=== PATIENT | female | born 1980 | race Caucasian/White ===

== ENCOUNTER → 2016-12-28 | Outpatient (CLI) | payer MEDICARE, OTHER ==
--- NOTE | 2016-12-28 13:58 | CT ---
EXAMINATION TYPE: CT brain w con DATE OF EXAM: 12/28/2016 COMPARISON: MRI brain December 28, 2013 HISTORY: Headache, acute CT DLP: 1103 mGycm Automated Exposure Control for Dose Reduction was Utilized. TECHNIQUE: CT scan of the head is performed with IV contrast.,CT scan of the head is performed withou t and with with IV Contrast, patient injected with 100 ml mL of Omnipaque 300. FINDINGS: Noncontrast images show no acute intracranial hemorrhage or midline shift. The ventricles and sulci are within normal limits in size. Postcontrast images show no suspicious enhancing intrapa renchymal mass. The globes are intact and the visualized sinuses are clear. IMPRESSION: Unremarkable study.
== END | disposition home or self-care (01) ==
LOC: RADCTMAIN 13:17
PROVIDERS: ATTEND Family Medicine
DX: R51 Headache (principal)
CPT/HCPCS: 70460; Q9967

== ENCOUNTER 2017-07-23 21:50 | Emergency (ER) | payer MEDICARE, OTHER ==
[2017-07-23 22:01] VITALS: RESP 18
--- NOTE | 2017-07-23 22:37 | ED ---
URI HPI - General Chief Complaint: Upper Respiratory Infection Stated Complaint: Cough Time Seen by Provider: 07/23/17 22:24 Source: patient Mode of arrival: ambulatory Limitations: no limitations - History of Present Illness Initial Comments: 36-year-old male patient presents to the emergency department today for evaluation of cough and congestion. Patient states that she did see her physician on and he gave her prescription for Biaxin, states she has been taking it but is not improving. She states that her symptoms started around . States that she has had nasal congestion, cough, and sore throat. She denies any fevers with this. She states that today she is having some chest pain and shortness of breath with coughing. She states she has sick contacts at home. Patient denies any recent rash, abdominal pain, nausea, vomiting, diarrhea, constipation, back pain, numbness, tingling, dizziness, weakness, hematuria, dysuria, urinary urgency, urinary frequency, headache, visual changes, or any other complaints. - Related Data Home Medications Medication Instructions Recorded Confirmed Levothyroxine Sodium [Synthroid] 50 mcg PO DAILY 03/21/14 04/12/14 Non-Formulary Drug [Non Formulary 1 each PO ONCE 04/03/14 04/03/14 Drug] Previous Rx's Medication Instructions Recorded Promethaz-Cod 6.25-10 mg/5 ml 5 ml PO Q6HR PRN #100 ml 07/23/17 [Phenergan with Codeine] predniSONE 50 mg PO DAILY #5 tablet 07/23/17 Allergies Allergy/AdvReac Type Severity Reaction Status Date / Time No Known Allergies Allergy Verified 07/23/17 22:01 Review of Systems ROS Statement: Those systems with pertinent positive or pertinent negative responses have been documented in the HPI. ROS Other: All systems not noted in ROS Statement are negative. Past Medical History Past Medical History: GERD/Reflux, Thyroid Disorder History of Any Multi-Drug Resistant Organisms: None Reported Past Surgical History: Section Additional Past Surgical History / Comment(s): partial right thyroidectomy, epiglottis flap surgery 2013 Past Psychological History: No Psychological Hx Reported Smoking Status: Current every day smoker Past Alcohol Use History: None Reported Past Drug Use History: None Reported - Past Family History Mother Family Medical History: Cancer General Exam Limitations: no limitations General appearance: alert, in no apparent distress, other (Social well-developed , well-nourished adult female patient in no acute distress. Vital signs upon presentation are temperature 99.1F oral, pulse 122, respirations 18, blood pressure 137/90, pulse ox 98% on room air.) Eye exam: Present: normal appearance, PERRL, EOMI. Absent: scleral icterus, conjunctival injection, periorbital swelling ENT exam: Present: normal exam, mucous membranes moist, TM's normal bilaterally , other (No evidence of tonsillar hypertrophy or tonsillar exudate.). Absent: normal oropharynx (Oropharyngeal erythema) Neck exam: Present: normal inspection. Absent: tenderness, meningismus, lymphadenopathy Respiratory exam: Present: normal lung sounds bilaterally, other (Respirations are even and unlabored). Absent: respiratory distress, wheezes, rales, rhonchi , stridor Cardiovascular Exam: Present: regular rate, normal rhythm, normal heart sounds. Absent: systolic murmur, diastolic murmur, rubs, gallop, clicks GI/Abdominal exam: Present: soft, normal bowel sounds. Absent: distended, tenderness, guarding, rebound, rigid Neurological exam: Present: alert, oriented X3, CN II-XII intact Psychiatric exam: Present: normal affect, normal mood Skin exam: Present: warm, dry, intact, normal color. Absent: rash Course Vital Signs 07/23/17 07/23/17 21:59 23:00 Temperature 98.6 F 98.9 F Pulse Rate 122 H 104 H Respiratory 18 18 Rate Blood Pressure 137/90 133/75 O2 Sat by Pulse 98 96 Oximetry Medical Decision Making - Medical Decision Making 36-year-old female patient presented to the emergency department today for evaluation of cough, congestion, and shortness of breath. Physical examination revealed clear lung sounds, erythematous oropharynx, and even nonlabored respirations. EKG was obtained and showed sinus tachycardia with a fascicular block. Chest x-ray was obtained and showed no acute cardiopulmonary process however did show a hiatal hernia. Influenza testing was negative. I did discuss results with patient, informed her of the hiatal hernia. I informed her that her symptoms are most likely viral in nature. I told her that the Bisaad could take a few more days to kick in if she doesn't act have a sinus infection as diagnosed by her primary care physician. I instructed her to increase her fluids. I did inform her that she most likely has developed a bronchitis. She'll be given IM steroids here in the department. She'll be given a home prescription for Phenergan with codeine and prednisone. She is instructed to follow-up with her primary care physician for recheck in 1-2 days. She is instructed to return here immediately for any new, worsening, or concerning symptoms. She verbalizes understanding and agrees with this plan. - Lab Data Lab Results 07/23/17 Range/Units 22:56 Influenza Type A RNA Not Detected (Not Detectd) Influenza Type B (PCR) Not Detected (Not Detectd) - EKG Data EKG Comments: EKG obtained at 2257 shows normal sinus rhythm with a left posterior fascicular block. Ventricular rate is 100, AR interval 132, QRS duration 68, QT 330, QTC 425. No evidence of ST elevation or depression. - Radiology Data Radiology results: report reviewed, image reviewed Two-view x-ray of the chest shows a heart and mediastinum are normal. Lungs are clear. There is a hiatal hernia. Diaphragm is normal. Bony thorax is intact. Impression by Dr. Regalado shows hiatal hernia with no active cardiopulmonary disease. Disposition Clinical Impression: Acute bronchitis, Viral upper respiratory illness Disposition: HOME SELF-CARE Condition: Good Instructions: Upper Respiratory Infection (ED), Acute Bronchitis (ED) Additional Instructions: Rest, increase fluids. Complete her antibiotic prescription and full. Complete steroid prescription and full. Take cough medication as directed. Follow-up with her primary care physician for recheck in 1-2 days. Return here immediately for any new, worsening, or concerning symptoms. Prescriptions: predniSONE 50 mg PO DAILY #5 tablet Promethaz-Cod 6.25-10 mg/5 ml [Phenergan with Codeine] 5 ml PO Q6HR PRN #100 ml PRN Reason: Cough Referrals: Jimmy Redding MD [Primary Care Provider] - 1-2 days Time of Disposition: 23:39
--- NOTE | 2017-07-23 23:00 | XR ---
EXAMINATION TYPE: XR chest 2V DATE OF EXAM: 07/23/2017 COMPARISON: NONE HISTORY: Chest pain TECHNIQUE: Frontal and lateral views of the chest are obtained. FINDINGS: Heart and mediastinum are normal. Lungs are clear. There is a hiatal hernia. Diaphragm is normal. Bony thorax is intact. IMPRESSION: Hiatal hernia. No active cardiopulmonary disease.
[2017-07-23 23:01] VITALS: BP 133/75; PULSE 104; TEMP 98.9
[2017-07-23] MEDS ORDERED: methylPREDNISolone SOD SUCCI 125 MG/2 ML VIAL IM ONE (23:36)
== END 2017-07-23 23:49 | disposition home or self-care (01) ==
LOC: EC 21:50
DX: J20.9 Acute bronchitis, unspecified (principal); J06.9 Acute upper respiratory infection, unspecified; K44.9 Diaphragmatic hernia without obstruction or gangrene; I44.5 Left posterior fascicular block; R00.0 Tachycardia, unspecified; E07.9 Disorder of thyroid, unspecified; F17.200 Nicotine dependence, unspecified, uncomplicated; Z79.899 Other long term (current) drug therapy; Z98.890 Other specified postprocedural states
CPT/HCPCS: 93005; 87502; 71020; 99284; 96372; J2930

== ENCOUNTER 2017-10-12 08:14 | Day surgery (SDC) | payer MEDICARE, OTHER ==
[2017-10-07 16:18] VITALS: BMI 39.3
[~2017-10-12 08:14] MED LIST: LACTATED RINGERS 1,000 ML IV SCH
[2017-10-12 08:40] VITALS: RESP 16; TEMP 97.6
[2017-10-12] MEDS ORDERED: LIDOCAINE 1% 20 ML VIAL (10MG/ML) FOR IV START INTRADERMA ONE (08:51)
--- NOTE | 2017-10-12 10:12 | P.GSHP ---
History of Present Illness H&P Date: 10/12/17 Chief Complaint: GERD This is a 36-year-old female who presents today for EGD. She's had issues with GERD. Past Medical History Past Medical History: Cancer, GERD/Reflux, Hypertension, Thyroid Disorder Additional Past Medical History / Comment(s): THYROID CA. History of Any Multi-Drug Resistant Organisms: None Reported Past Surgical History: Section, Joint Replacement Additional Past Surgical History / Comment(s): Partial LT Thyroidectomy. LT TOTAL KNEE. Epiglottis flap surgery 2013 (FOR GERD). Past Anesthesia/Blood Transfusion Reactions: No Reported Reaction Smoking Status: Current every day smoker - Past Family History Mother Family Medical History: Cancer Medications and Allergies Home Medications Medication Instructions Recorded Confirmed Type Levothyroxine Sodium [Synthroid] 125 mcg PO DAILY 03/21/14 10/07/17 History Acetaminophen [Tylenol Extra 500 mg PO Q6H PRN 10/07/17 10/07/17 History Strength] Escitalopram [Lexapro] 10 mg PO HS 10/07/17 10/07/17 History Lessina-28 1 tab PO HS 10/07/17 History Losartan [Cozaar] 50 mg PO DAILY 10/07/17 10/07/17 History Allergies Allergy/AdvReac Type Severity Reaction Status Date / Time No Known Allergies Allergy Verified 10/12/17 08:29 Surgical - Exam Vital Signs Temp Pulse Resp BP Pulse Ox 97.6 F 98 16 138/85 96 10/12/17 08:39 10/12/17 08:39 10/12/17 08:39 10/12/17 08:39 10/12/17 08:39 - General well developed, no distress - Eyes PERRL - ENT normal pinna, no hearing loss - Neck no masses - Respiratory normal expansion - Cardiovascular Rhythm: regular - Abdomen Abdomen: soft, non tender Assessment and Plan Assessment: GERD. We'll perform EGD.
[2017-10-12] MEDS ORDERED: LIDOCAINE 1% INJ 10MG/ML (20 ML MDV) ONE (10:15)
[2017-10-12] MEDS ORDERED: PROPOFOL 10 MG/ML 20 ML VIAL IV ONE (10:15)
--- NOTE | 2017-10-12 10:31 | P.OP ---
Date of Procedure: 10/12/17 Preoperative Diagnosis: GERD Postoperative Diagnosis: Large paraesophageal hernia Procedure(s) Performed: egd Anesthesia: MAC Surgeon: Calvin Carson Pathology: other (Antrum, esophagus) Condition: stable Disposition: PACU Description of Procedure: The patient's placed on the endoscopy table lateral position. She received IV sedation. The gastroscope placed oropharynx and passed in the esophagus into the stomach. Scope was then placed through the pylorus. The first and second portion of the duodenum appeared normal. The scope was then brought back into the antrum this is mildly inflamed. A biopsies was performed. The scope was unretroflexed and remainder stomach appeared normal. There was a large paraesophageal hiatal hernia. The GE junction was at 38 cm. The distal esophagus was minimal inflamed and a biopsies performed. The proximal esophagus appeared normal. The scope was withdrawn for patient.
[2017-10-12 11:13] VITALS: BP 123/81; PULSE 79
== END 2017-10-12 11:29 | disposition home or self-care (01) ==
LOC: ORWHC2ENDO 08:14
PROVIDERS: ATTEND Surgery
DX: K21.0 Gastro-esophageal reflux disease with esophagitis (principal); K29.50 Unspecified chronic gastritis without bleeding; K44.9 Diaphragmatic hernia without obstruction or gangrene; I10 Essential (primary) hypertension; Z85.850 Personal history of malignant neoplasm of thyroid; E89.0 Postprocedural hypothyroidism; Z79.890 Hormone replacement therapy; Z79.899 Other long term (current) drug therapy; F17.210 Nicotine dependence, cigarettes, uncomplicated; F41.9 Anxiety disorder, unspecified; E66.01 Morbid (severe) obesity due to excess calories; Z68.39 Body mass index [BMI] 39.0-39.9, adult
CPT/HCPCS: 81025; 88305; 43239; J2001; J2704

== ENCOUNTER → 2017-10-31 | Outpatient (CLI) | payer MEDICARE, OTHER ==
[2017-10-31 11:03] LABS: Basophils % (A) 1 %; Eosinophils # (A) 0.2 k/uL (0-0.7); Eosinophils % (A) 2 %; HCT 42.3 % (34.0-46.0); Lymphocytes % (A) 39 %; MCH 30.3 pg (25.0-35.0); MCV 91.7 fL (80.0-100.0); Mean Platelet Volume 6.9; Monocytes # (A) 0.4 k/uL (0-1.0); Monocytes % (A) 5 %; Neutrophils % (A) 52 %; Platelet Count 295 k/uL (150-450); RBC 4.61 m/uL (3.80-5.40); RDW 12.6 % (11.5-15.5); WBC 7.7 k/uL (3.8-10.6)
== END | disposition home or self-care (01) ==
LOC: LABPAT 10:16
PROVIDERS: ATTEND Surgery
DX: Z01.818 Encounter for other preprocedural examination (principal); Z01.812 Encounter for preprocedural laboratory examination; K21.9 Gastro-esophageal reflux disease without esophagitis; D64.9 Anemia, unspecified; F17.200 Nicotine dependence, unspecified, uncomplicated
CPT/HCPCS: 36415; 85025; 93005

== ENCOUNTER 2017-11-11 10:55 | Day surgery (SDC) | payer MEDICARE, OTHER ==
[2017-11-02 15:21] VITALS: BMI 38.9
[~2017-11-11 10:55] MED LIST changes: +DEXAMETHASONE SOD PHOSPHATE 10 MG/ML 1 ML VIAL IV ONE; +HEPARIN SODIUM,PORCINE 5,000 UNIT/ML 1 ML VIAL SQ ONE; -LACTATED RINGERS 1,000 ML IV SCH; +MIDAZOLAM 2 MG/2 ML VIAL IV PRN; +ONDANSETRON 4 MG/2 ML VIAL IVP ONE; +SCOPOLAMINE 1.5MG/72HR PATCH TRANSDERM ONE; +ceFAZolin IN SWFI 2 GM/20 ML SYRINGE IVP ONE; +fentaNYL (PF) 50 MCG/ML 2 ML AMP IV PRN
[2017-11-11] MEDS ORDERED: LIDOCAINE 1% 20 ML VIAL (10MG/ML) FOR IV START INTRADERMA ONE (11:25)
[2017-11-11] MEDS: LACTATED RINGERS 1,000 ML IV SCH (11:27)
--- NOTE | 2017-11-11 12:51 | P.GSHP ---
History of Present Illness H&P Date: 11/11/17 Chief Complaint: GERD This is a 36-year-old female referred from Dr. Redding.The patient has had long- standing problems with reflux esophagitis. The patient underwent recent EGD is found have evidence of esophagitis. Patient has been well informed on the procedure of laparoscopic Maliha fundoplication. The patient is aware the risk of the conversion to the open procedure, risk of injury to the stomach, liver and spleen. The patient is also a risk of recurrent GERD and dysphagia symptoms. The patient understands there is a postoperative diet of full liquids for 2 weeks after surgery. Past Medical History Past Medical History: Cancer, GERD/Reflux, Hypertension, Thyroid Disorder Additional Past Medical History / Comment(s): THYROID cancer, migraines, hiatal hernia, History of Any Multi-Drug Resistant Organisms: None Reported Past Surgical History: Section, Joint Replacement Additional Past Surgical History / Comment(s): Partial left Thyroidectomy. Epiglottis flap surgery 2013 (FOR GERD), left knee replacement, C/S x 2, Past Anesthesia/Blood Transfusion Reactions: No Reported Reaction Smoking Status: Current every day smoker - Past Family History Mother Family Medical History: Cancer Medications and Allergies Home Medications Medication Instructions Recorded Confirmed Type Levothyroxine Sodium [Synthroid] 125 mcg PO DAILY 03/21/14 11/11/17 History Escitalopram [Lexapro] 10 mg PO HS 10/07/17 11/11/17 History Lessina-28 1 tab PO HS 10/07/17 11/11/17 History Losartan [Cozaar] 50 mg PO DAILY 10/07/17 11/11/17 History Tylenol/Codeine/Aspirin 1 tab PO DIRECTED PRN 11/02/17 11/11/17 History Allergies Allergy/AdvReac Type Severity Reaction Status Date / Time No Known Allergies Allergy Verified 11/02/17 15:12 Surgical - Exam Vital Signs Temp Pulse Resp BP Pulse Ox 97.2 F L 99 16 121/76 97 11/11/17 11:23 11/11/17 11:23 11/11/17 11:23 11/11/17 11:23 11/11/17 11:23 - General well developed, no distress - Eyes PERRL - ENT normal pinna - Neck no masses - Respiratory normal expansion - Cardiovascular Rhythm: regular - Abdomen Abdomen: soft, non tender Assessment and Plan Assessment: We'll perform laparoscopic Maliha fundal plication.
[2017-11-11 13:01] LABS: Prothrombin Time 10.1 sec (9.0-12.0)
[2017-11-11] MEDS ORDERED: fentaNYL (PF) 50 MCG/ML 2 ML AMP ONE (13:08)
[2017-11-11] MEDS ORDERED: KETOROLAC 30 MG/ML 1 ML VIAL ONE (13:08)
[2017-11-11] MEDS ORDERED: ROCURONIUM BROMIDE 10 MG/ML 10 ML VIAL IV ONE (13:08)
[2017-11-11] MEDS ORDERED: MIDAZOLAM 2 MG/2 ML VIAL ONE (13:08)
[2017-11-11] MEDS ORDERED: GLYCOPYRROLATE 0.2 MG/ML 2 ML VIAL ONE (13:08)
[2017-11-11] MEDS ORDERED: NEOSTIGMINE 1 MG/ML 10 ML VIAL ONE (13:08)
[2017-11-11] MEDS ORDERED: PROPOFOL 10 MG/ML 20 ML VIAL IV ONE (13:08)
[2017-11-11] MEDS ORDERED: DEXAMETHASONE SOD PHOS (MDV) 100 MG/10 ML VIAL ONE (13:08)
[2017-11-11] MEDS ORDERED: BUPIVACAINE (PF) 0.25% 30 ML VIAL SQ ONE (13:17)
[2017-11-11] MEDS ORDERED: MORPHINE SULFATE 4MG/4ML SYRG IVP PRN ×2 (14:15→14:18)
[2017-11-11] MEDS ORDERED: LACTATED RINGERS 1,000 ML IV ONE (14:15)
--- NOTE | 2017-11-11 14:20 | P.OP ---
Date of Procedure: 11/11/17 Preoperative Diagnosis: GERD Postoperative Diagnosis: Recurrent hiatal hernia Procedure(s) Performed: Laparoscopic Maliha fundoplication with mesh Anesthesia: JUVE Surgeon: Calvin Carson Estimated Blood Loss (ml): 10 Pathology: none sent Condition: stable Disposition: PACU Description of Procedure: MThe patient was placed on the operating table in the supine position. She received general anesthesia. She was then placed in dorsal lithotomy position. Her abdomen was prepped and draped in the usual sterile fashion. The skin incision sites were anesthetized with 1% local Xylocaine. The skin was incised in the left periumbilical area with an 11 scalpel. Using a 5 mm blade was trocar under direct visitation the peritoneal cavity was entered. And then insufflated. After adequate insufflation the laparoscope was placed back into the peritoneal cavity. Next a 5 mm trocar was placed in the right epigastric and then the right lateral position. Another 5 mm trochars placed in the left lateral position. Another 5 mm trocar placed in the left epigastric position. And the original left periumbilical trocar was exchanged for a 10 mm trocar. The left lateral lobe liver was retracted. The patient had a large hiatal hernia. Using the Harmonic scissors the crural defect was dissected in the Harmonic scissors were used to dissect the hiatal hernia sac. The fundus of the stomach was completely mobilized by using the Harmonic scissors to divide short gastric vessels. The stomach was reduced into the peritoneal cavity. The crura was dissected with the Harmonic scissors. And then the crural repair was performed using 2-0 Ethibond suture. The [place] bio A mesh was then placed over top of the repair and secured with 2-0 Ethibond suture. Next a 58-Bruneian bougie dilator was placed the patient's oral pharynx and into the esophagus into the stomach by the [employer]. The fundoplication was then performed using 2-0 Ethibond suture. A 360 fundoplication was performed. At this point the dilator was withdrawn. The stomach and esophagus were inspected there is known to any injury to the stomach or esophagus. The abdomen was irrigated there is no bleeding seen. The trochars are withdrawn. Skin was closed interrupted 3-0 Monocryl suture. Dermabond was applied. Patient tolerated procedure well and was sent to recovery in stable condition.
[2017-11-11] MEDS ORDERED: MORPHINE SULFATE 4 MG/ML SYRINGE IVP ONE (14:38)
[2017-11-11] MEDS: MORPHINE SULFATE 4 MG/ML SYRINGE IVP ONE ×2 (14:52→14:54)
[2017-11-11] MEDS: MEPERIDINE 50 MG/ML SYRINGE IVP ONE ×2 (15:08→15:09)
[2017-11-11] MEDS: NICOTINE 14MG/24HR PATCH TRANSDERM SCH (19:10)
[2017-11-11] MEDS: METOCLOPRAMIDE 5 MG/ML 2 ML VIAL IVP SCH ×2 (19:10→23:18)
[2017-11-11] MEDS: MORPHINE SULFATE 4 MG/0.8 ML SYRINGE (INJ) IVP PRN (19:10)
--- NOTE | 2017-11-11 19:22 | CONS ---
CONSULTATION I am covering for Dr. Redding. DATE OF SERVICE: 11/11/2017. REASON FOR CONSULTATION: Advice regarding hypertension, hypothyroidism and other multiple medical issues requested by Dr. Carson. HISTORY OF PRESENT ILLNESS: This 36-year-old woman with a past medical history of GERD, hypertension, hypothyroidism, history of migraines, hiatal hernia being followed by Dr. Redding in the outpatient setting underwent laparoscopic Maliha fundoplication with mesh by Dr. Carson for recurrent hiatal hernia. There was no history of any chest pain, palpitation, headache loss of consciousness. No history of any fever, rigors, chills at this time. PAST MEDICAL HISTORY: Hypertension, hypothyroidism, history of migraine, hiatal hernia, GERD. MEDICATIONS PRIOR TO ADMISSION: Include home medications are: 1. Tylenol with codeine 1 tablet p.r.n. 2. Cozaar 50 mg daily. 3. Synthroid 120 mcg p.o. daily. 4. 1 tablet p.o. q.h.s. 5. Lexapro 10 mg q.h.s. ALLERGIES: None. FAMILY HISTORY: History of cancer in the family. SOCIAL HISTORY: History of smoking. REVIEW OF SYSTEMS: ENT: No diminished hearing, diminished vision. CARDIOVASCULAR: No angina, palpitations. RESPIRATORY: As mentioned earlier. GI: As mentioned earlier. : No dysuria. NERVOUS: No numbness or weakness. ALLERGY/IMMUNOLOGY: No asthma or hay fever. MUSCULOSKELETAL: As mentioned earlier. HEMATOLOGY/ONCOLOGY: No history of anemia. ENDOCRINE: No history of diabetes, hypothyroidism. CONSTITUTIONAL: As mentioned earlier. DERMATOLOGY: Negative. RHEUMATOLOGY: Negative. PSYCHIATRY: As mentioned earlier. PHYSICAL EXAMINATION: Alert and oriented x3. Pulse is 83, blood pressure 131/66, respirations 16, temperature 97 degrees, pulse ox 97% on 6L. HEENT: Conjunctivae normal. Oral mucosa moist. NECK: No jugular venous distention. No carotid bruits. No lymph node enlargement. CARDIOVASCULAR: S1, S2 muffled. No S3, S4. RESPIRATORY: Breath sounds diminished in the bases. A few scattered rhonchi. No crackles. ABDOMEN: Soft, nontender, status post surgery. LEGS: No edema. No swelling. NERVOUS SYSTEM: Higher functions as mentioned earlier. Moves all 4 limbs. No focal motor or sensory deficits. LYMPHATIC: No lymphadenopathy in neck or axillae. SKIN: No ulcer, rash or bleeding. LABS: Previous preop labs are reviewed, within normal limits. TSH was 0.3; however, free T4 was normal. ASSESSMENT: 1. Status post laparoscopic Maliha fundoplication with mesh for recurrent hiatal hernia. 2. Gastroesophageal reflux disease. 3. Hypertension. 4. Hypothyroidism. 5. History of migraines. 6. History of degenerative joint disease. 7. History of anxiety. 8. History of nicotine dependence. RECOMMENDATIONS AND DISCUSSION: In this 36-year-old woman who presented with multiple medical issues, at this time I recommend resume the home medication when the patient is p.o. Otherwise, DVT prophylaxis, incentive spirometry. Will follow the patient closely. The patient will be asked to follow up with Dr. Redding closely after discharge. Thank you Dr. Carson. LARRYL / JONNIEN: [id number] / JORGE
[2017-11-11] MEDS: D5-0.45% NACL WITH KCL 20MEQ/L 1,000 ML IV SCH ×2 (20:14→23:18)
[2017-11-11] MEDS: FAMOTIDINE 20 MG/2 ML VIAL IV SCH (21:20)
[2017-11-11 23:34] VITALS: RESP 18
[2017-11-12] MEDS: LACTATED RINGERS 1,000 ML IV SCH (00:50)
[2017-11-12] MEDS: MORPHINE SULFATE 4 MG/0.8 ML SYRINGE (INJ) IVP PRN ×2 (02:45→08:50)
[2017-11-12] MEDS: METOCLOPRAMIDE 5 MG/ML 2 ML VIAL IVP SCH (06:23)
[2017-11-12] MEDS: D5-0.45% NACL WITH KCL 20MEQ/L 1,000 ML IV SCH (06:24)
[2017-11-12] MEDS ORDERED: LEVOTHYROXINE 125 MCG TAB PO SCH (06:30)
[2017-11-12] MEDS: NICOTINE 14MG/24HR PATCH TRANSDERM SCH (08:49)
[2017-11-12] MEDS: FAMOTIDINE 20 MG/2 ML VIAL IV SCH (08:49)
[2017-11-12] MEDS ORDERED: ENOXAPARIN 40 MG/0.4 ML SYRINGE SQ SCH (09:00)
[2017-11-12] MEDS ORDERED: PANTOPRAZOLE 40 MG/10 ML VIAL IVP SCH (09:00)
[2017-11-12] MEDS ORDERED: LOSARTAN 50 MG TAB PO SCH (09:00)
[2017-11-12 09:17] VITALS: BP 134/70; PULSE 77; TEMP 98.1
--- NOTE | 2017-11-12 09:36 | FL ---
EXAMINATION TYPE: FL esophagus cervic/pharynx DATE OF EXAM ORDERED: 11/12/2017 9:16 AM HISTORY: Law fundoplication. COMPARISON: None. FINDINGS: The patient drank contrast with ease. There is prompt egress of contrast from the esophagu s into the stomach. There is no significant free air. There is no extravasation. The ligament of Trei tz is in normal location. IMPRESSION: STATUS POST LAW FUNDOPLICATION.
--- NOTE | 2017-11-12 11:48 | P.PN ---
Subjective Progress Note Date: 11/12/17 Patient is a 36-year-old white female status post laparoscopic Maliha fundoplication. The patient had a swallow performed today which does not show any concern for leak and prompt egress of contrast from the esophagus into the stomach. The patient is doing well at this time and wishes to be discharged home. Objective - Vital Signs Vital signs: Vital Signs Temp 98.1 F 11/12/17 08:11 Pulse 77 11/12/17 08:11 Resp 18 11/12/17 08:11 BP 134/70 11/12/17 08:11 Pulse Ox 97 11/12/17 08:11 Intake & Output 11/11/17 11/12/17 11/12/17 18:59 06:59 18:59 Intake Total 1600 1400 Output Total 10 Balance 1590 1400 Weight 102.965 kg Intake: IV 1600 Oral 1400 Output: Estimated Blood Loss 10 Other: # Voids 1 - Constitutional General appearance: Present: obese - Respiratory Respiratory: bilateral: CTA - Cardiovascular Rhythm: regular Heart sounds: normal: S1, S2 - Gastrointestinal Gastrointestinal Comment(s): Incisions clean and dry General gastrointestinal: Present: normal bowel sounds, soft - Psychiatric Psychiatric: Present: A&O x's 3, appropriate affect, intact judgment & insight Assessment and Plan Assessment: Impression/plan: 1. Patient doing well postop Plan: 1. Discharge patient home to be followed as an outpatient by Dr. Quintanilla
--- NOTE | 2017-11-12 11:49 | P.DS ---
Providers Attending physician: Calvin Carson Consults: 11/11/17 14:15 Consult Physician Routine Consulting Provider: Jimmy Redding Consult Reason/Comments: Medical management Do you want consulting provider notified?: Yes Primary care physician: Jimmy Redding Plan - Discharge Summary Discharge Rx Participant: No New Discharge Prescriptions: New Docusate [Colace] 100 mg PO BID #20 capsule HYDROcodone/APAP 7.5-325MG [Dike 7.5] 1 each PO Q4H PRN #30 tab PRN Reason: Pain No Action Levothyroxine Sodium [Synthroid] 125 mcg PO DAILY Losartan [Cozaar] 50 mg PO DAILY Escitalopram [Lexapro] 10 mg PO HS Lessina-28 1 tab PO HS Tylenol/Codeine/Aspirin 1 tab PO DIRECTED PRN PRN Reason: migraines Discharge Medication List Levothyroxine Sodium [Synthroid] 125 mcg PO DAILY 03/21/14 [History] Escitalopram [Lexapro] 10 mg PO HS 10/07/17 [History] Lessina-28 1 tab PO HS 10/07/17 [History] Losartan [Cozaar] 50 mg PO DAILY 10/07/17 [History] Tylenol/Codeine/Aspirin 1 tab PO DIRECTED PRN 11/02/17 [History] Docusate [Colace] 100 mg PO BID #20 capsule 11/11/17 [Rx] HYDROcodone/APAP 7.5-325MG [Dike 7.5] 1 each PO Q4H PRN #30 tab 11/11/17 [Rx] Follow up Appointment(s)/Referral(s): Calvin Carson MD [STAFF PHYSICIAN] - 2 Weeks Patient Instructions/Handouts: *Surgery [facility] - ([facility]) Lap Maliha Fundiplication Post-Op Instructions, Full Liquid Diet (DC) Activity/Diet/Wound Care/Special Instructions: Follow the full liquid diet plan. If unable to swallow or difficulty swallowing, come to ER. If any fever, increased pain, or other concerns call your surgeon. Make follow-up appointments on Tuesday. See Dr. Carson in 2 weeks. Discharge Disposition: HOME SELF-CARE
--- NOTE | 2017-11-12 14:39 | PN ---
PROGRESS NOTE I am covering for Dr. Redding. DATE OF SERVICE: 11/12/2017 This 36-year-old woman who was admitted after Maliha fundoplication is being closely monitored. The patient is improving significantly. No chest pain. No palpitations. No fever. On exam, alert and oriented x3. Pulse 77, blood pressure 130/70, respiration 18, temperature 98.1, pulse ox 97% on room air. HEENT: Conjunctivae normal. NECK: No jugular venous distention. CARDIOVASCULAR SYSTEM: S1, S2 muffled. RESPIRATORY SYSTEM: Breath sounds diminished at the bases. No rhonchi. No crackles. ABDOMEN: Soft. Status post surgery. LEGS: No edema. No swelling. NERVOUS SYSTEM: No focal deficit. LABS: INR 1. ASSESSMENT: 1. Status post laparoscopic Maliha fundoplication with mesh for recurrent hiatal hernia. 2. Gastroesophageal reflux disease. 3. Hypertension. 4. Hypothyroidism. 5. History of migraine. 6. History of degenerative joint disease. 7. History of anxiety. 8. History of nicotine dependence. RECOMMENDATIONS AND DISCUSSION: I recommend to continue current medication, continue symptomatic treatment. Resume the home medication. Incentive spirometry. Closely follow with Dr. Redding. The rest of the recommendations per Surgery. Further recommendations to follow. . MMODL / IJN: [id number] /
[2017-11-12] MEDS ORDERED: ESCITALOPRAM 10 MG TAB PO SCH (21:00)
== END 2017-11-12 11:47 | disposition home or self-care (01) ==
LOC: OR 10:55 → 6PED 14:24 → OR 11-12 11:47
PROVIDERS: ATTEND Surgery
DX: K44.9 Diaphragmatic hernia without obstruction or gangrene (principal); K21.0 Gastro-esophageal reflux disease with esophagitis; I10 Essential (primary) hypertension; E89.0 Postprocedural hypothyroidism; Z85.850 Personal history of malignant neoplasm of thyroid; G43.909 Migraine, unspecified, not intractable, without status migrainosus; M19.90 Unspecified osteoarthritis, unspecified site; F41.9 Anxiety disorder, unspecified; F17.210 Nicotine dependence, cigarettes, uncomplicated; Z79.890 Hormone replacement therapy; Z79.899 Other long term (current) drug therapy; Z91.040 Latex allergy status; Z96.652 Presence of left artificial knee joint
CPT/HCPCS: 81025; 85610; 74210; 43280; C1781; S4990 ×2; J2270 ×3; J1644; J1100; J2765 ×2; J2175; J2405; J1650; C9113; J0690; Q9967

== ENCOUNTER → 2018-03-02 | Outpatient (CLI) | payer MEDICARE, OTHER ==
--- NOTE | 2018-03-02 09:00 | FL ---
EXAMINATION TYPE: FL barium swallow DATE OF EXAM: 03/02/2018 CLINICAL HISTORY: Recurrent epigastric pain improving with medication, history of prior surgeries for hernia repair. Was unaware patient had José fundoplication surgery October 2017, suspected ventral w all hernia repair after discussing with patient TECHNIQUE: A double contrast esophagram is performed utilizing air and barium was performed as well as unaware of prior José fundoplication surgery. A total of 32 seconds of fluoroscopic time was ut ilized during procedure. 22 spot images are saved during procedure. COMPARISON: Prior esophagram November 12, 2017 FINDINGS: The esophagus shows satisfactory motility and emptying into the stomach. No suspicious intr aluminal mass or stricture. There is recurrent small to moderate-sized sliding-type hiatal hernia whi ch is more prominent during drinking in the prone position. On review of upright drinking there is moreira ggestion of a retrocardiac opacity does not fill with contrast could reflect additional fixed small p araesophageal hernia but this is not clearly identified on supine imaging. No significant gastroesoph ageal reflux was seen during real time performance of this study. IMPRESSION: At least recurrent small to moderate-sized hiatal hernia favored sliding type and nonfixe d.
== END | disposition home or self-care (01) ==
LOC: RADFLWHC 08:01
PROVIDERS: ATTEND Surgery
DX: K44.9 Diaphragmatic hernia without obstruction or gangrene (principal); K21.9 Gastro-esophageal reflux disease without esophagitis
CPT/HCPCS: 74220

== ENCOUNTER → 2018-06-26 | Outpatient (CLI) | payer MEDICARE, OTHER ==
--- NOTE | 2018-06-26 13:20 | US ---
EXAMINATION TYPE: Transabdominal pelvic ultrasound DATE OF EXAM: 10/25/17 COMPARISON: NONE CLINICAL HISTORY: O00.9 Ectopic . EXAM MEASUREMENTS: GESTATIONAL AGE / DATING Physician Established: Not yet established Dates by LMP: (7 weeks/5 days) EDC: 02/07/18 Dates by First Scan: No previous this is first scan Dates by Current Scan for: (7 weeks/1 days) EDC: 02/11/18 MATERNAL ANATOMY Uterus:10.1 x 6.1 x 7.0cm Right Ovary: 3.1 x 1.5 x 1.5cm Left Ovary: 2.3 x 1.9 x 1.9cm Post CDS / Adnexa: wnl Presence of free fluid: no GESTATION / SURVEY CRL: 1.0 (7 weeks/1 days) Yolk Sac (normal less than 6mm): 4mm Heart Rate: 159 bpm Rhythm: Normal IUP: Live IUP Date of LMP: 05/03/18 Beta HcG (if available): Not available at this time IMPRESSION: Single live intrauterine with a calculated sonographic age of 7 weeks and 1 days and estima stanislav date of delivery of 02/10/2018, concordant with menstrual age.
== END ==
LOC: RADUSWWP 12:31
PROVIDERS: ATTEND Family Medicine
DX: O00.90 Unspecified ectopic pregnancy without intrauterine pregnancy (principal); Z3A.01 Less than 8 weeks gestation of pregnancy
CPT/HCPCS: 76801

== ENCOUNTER → 2018-11-30 | Outpatient (CLI) | payer MEDICARE, OTHER ==
[2018-11-30 13:12] LABS: Glucose 3 Hour, Gest 118 mg/dL
== END | disposition home or self-care (01) ==
LOC: LABWHC1 08:45
PROVIDERS: ATTEND Obstetrics & Gynecology
DX: O99.810 Abnormal glucose complicating pregnancy (principal); Z3A.00 Weeks of gestation of pregnancy not specified
CPT/HCPCS: 36415; 82951; 82952

== ENCOUNTER 2019-01-04 22:10 | Outpatient (CLI) | payer MEDICARE, OTHER ==
[2019-01-04 23:03] VITALS: BP 119/70; PULSE 96; RESP 15; TEMP 97.9
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
== END 2019-01-04 22:55 | disposition home or self-care (01) ==
LOC: FBPOP 22:10
PROVIDERS: ATTEND Obstetrics & Gynecology
DX: O26.93 Pregnancy related conditions, unspecified, third trimester (principal); Z3A.35 35 weeks gestation of pregnancy
CPT/HCPCS: 59025; G0463; 99213

== ENCOUNTER 2019-04-17 05:55 | Day surgery (SDC) | payer MEDICARE, OTHER ==
[2019-04-13 14:12] VITALS: BMI 35.6
[~2019-04-17 05:55] MED LIST changes: +LACTATED RINGERS 1,000 ML IV SCH; +LIDOCAINE 1% 20 ML VIAL (10MG/ML) FOR IV START INTRADERMA PRN; -MIDAZOLAM 2 MG/2 ML VIAL IV PRN; -ONDANSETRON 4 MG/2 ML VIAL IVP ONE; -ceFAZolin IN SWFI 2 GM/20 ML SYRINGE IVP ONE; -fentaNYL (PF) 50 MCG/ML 2 ML AMP IV PRN
[2019-04-17] MEDS: ONDANSETRON 4 MG/2 ML VIAL IVP ONE ×2 (06:46→09:22)
[2019-04-17 06:48] LABS: Basophils # (A) 0.1 k/uL (0-0.2); Basophils % (A) 1 %; Eosinophils # (A) 0.2 k/uL (0-0.7); Eosinophils % (A) 2 %; HCT 40.5 % (34.0-46.0); HGB 13.5 gm/dL (11.4-16.0); Lymphocytes # (A) 2.9 k/uL (1.0-4.8); Lymphocytes % (A) 34 %; MCH 30.3 pg (25.0-35.0); MCHC 33.2 g/dL (31.0-37.0); MCV 91.1 fL (80.0-100.0); Mean Platelet Volume 6.5; Monocytes # (A) 0.5 k/uL (0-1.0); Monocytes % (A) 6 %; Neutrophils # (A) 4.8 k/uL (1.3-7.7); Neutrophils % (A) 56 %; Platelet Count 273 k/uL (150-450); RBC 4.45 m/uL (3.80-5.40); RDW 13.2 % (11.5-15.5); WBC 8.6 k/uL (3.8-10.6)
[2019-04-17] MEDS ORDERED: fentaNYL (PF) 50 MCG/ML 2 ML AMP IV ONE (07:10)
[2019-04-17] MEDS ORDERED: MIDAZOLAM (PF) 2 MG/2 ML VIAL IV ONE (07:10)
--- NOTE | 2019-04-17 07:43 | P.ANPRN ---
Procedure Note - Anesthesia - Nerve Block Performed Bilateral Rectus Abdominis Single Time Out Performed: Yes Date of Procedure: 04/17/19 Procedure Start Time: Procedure Stop Time: Location of Patient Procedure: PreOp Indication: Acute Post-Operative Pain, Requested by Surgeon Sedation Type: Sedate with meaningful contact maintained Preparation: Sterile Prep Position: Supine Catheter: None Needle Types: Pajunk Needle Gauge: 18 Ultrasound used to visualize needle placement: Yes Ultrasound used to observe medication spread: Yes Injectate: 0.5% Ropivacaine (see comment for volume) (15cc + decadron 2mg- per side) Blood Aspirated: No Pain Paresthesia on Injection Noted: No Resistance on Injection: Normal Image Stored and Saved: Yes Events: Uneventful and Well Tolerated
[2019-04-17] MEDS ORDERED: PROPOFOL 10 MG/ML 20 ML VIAL IV ONE (07:56)
[2019-04-17] MEDS ORDERED: MIDAZOLAM 2 MG/2 ML VIAL ONE (07:56)
[2019-04-17] MEDS ORDERED: DEXAMETHASONE SOD PHOSPHATE 4 MG/ML 1 ML VIAL ONE (07:56)
[2019-04-17] MEDS ORDERED: ROPIVACAINE 5 MG/ML 30 ML VIAL ONE (07:56)
[2019-04-17] MEDS ORDERED: ROCURONIUM BROMIDE 10 MG/ML 10 ML VIAL IV ONE (07:56)
[2019-04-17] MEDS ORDERED: GLYCOPYRROLATE 0.2 MG/ML 2 ML VIAL ONE (07:56)
[2019-04-17] MEDS ORDERED: fentaNYL (PF) 50 MCG/ML 2 ML AMP ONE (07:56)
[2019-04-17] MEDS ORDERED: NEOSTIGMINE 1 MG/ML 10 ML VIAL ONE (07:56)
[2019-04-17] MEDS ORDERED: LIDOCAINE 1% INJ 10MG/ML (20 ML MDV) ONE (07:56)
--- NOTE | 2019-04-17 08:03 | P.GSHP ---
History of Present Illness H&P Date: 04/17/19 Chief Complaint: Umbilical hernia This a 38-year-old female who presents today for laparoscopic Ross repair of umbilical hernia. Patient developed a tender mass at her umbilicus. Past Medical History Past Medical History: Cancer, GERD/Reflux, Thyroid Disorder Additional Past Medical History / Comment(s): THYROID cancer, History of Any Multi-Drug Resistant Organisms: None Reported Past Surgical History: Section, Hernia Repair, Joint Replacement Additional Past Surgical History / Comment(s): left lobe of thyroid removed, part of rt lobe of thyroid removed. LT TOTAL KNEE. Epiglottis flap surgery 2013 (FOR GERD). Past Anesthesia/Blood Transfusion Reactions: No Reported Reaction Smoking Status: Current every day smoker - Past Family History Mother Family Medical History: Cancer Medications and Allergies Home Medications Medication Instructions Recorded Confirmed Type Levothyroxine Sodium [Synthroid] 125 mcg PO DAILY 03/21/14 04/17/19 History Pnv No.95/Ferrous Fum/Folic AC 1 each PO DAILY 01/04/19 04/17/19 History [ Multivitamin Tablet] Ibuprofen [Motrin] 800 mg PO TID PRN 04/13/19 04/17/19 History Pantoprazole Sodium [Protonix] 40 mg PO QAM 04/13/19 04/17/19 History Allergies Allergy/AdvReac Type Severity Reaction Status Date / Time latex Allergy Anaphylaxis Verified 04/13/19 14:04 Surgical - Exam Vital Signs Temp Pulse Resp Pulse Ox 98.5 F 89 16 97 04/17/19 06:13 04/17/19 06:13 04/17/19 06:13 04/17/19 06:13 - General well developed, well nourished, no distress - Eyes PERRL - ENT normal pinna - Neck no masses - Respiratory normal expansion - Cardiovascular Rhythm: regular - Abdomen Abdomen: soft, non tender Results - Labs 04/17/19 06:28 Assessment and Plan Assessment: Umbilical hernia. We'll perform laparoscopic robotic-assisted repair.
[2019-04-17] MEDS ORDERED: BUPIVACAINE (PF) 0.5% 30 ML VIAL SQ ONE (08:23)
[2019-04-17] MEDS ORDERED: LACTATED RINGERS 1,000 ML IV ONE ×3 (08:33→11:02)
[2019-04-17 09:17] VITALS: TEMP 97
[2019-04-17] MEDS: HYDROmorphone 0.5 MG/0.5 ML SYRINGE IVP PRN ×2 (09:25→09:44)
[2019-04-17] MEDS ORDERED: HYDROcodone/APAP 7.5-325MG 1 EACH TAB PO ONE (10:11)
[2019-04-17] MEDS ORDERED: DEXAMETHASONE SOD PHOS (MDV) 100 MG/10 ML VIAL IVP ONE (10:15)
[2019-04-17 10:31] VITALS: RESP 18
--- NOTE | 2019-04-17 10:33 | P.OP ---
Date of Procedure: 04/17/19 Preoperative Diagnosis: Umbilical hernia Postoperative Diagnosis: Umbilical hernia Procedure(s) Performed: Laparoscopic robotic system repair of umbilical hernia Anesthesia: JUVE Surgeon: Calvin Carson Estimated Blood Loss (ml): 5 Pathology: none sent Condition: stable Disposition: PACU Description of Procedure: The patient was placed on the operating table in the supine position. He received general anesthesia. His abdomen was prepped and draped usual fashion. Using a 5 mm optical trocar under direct visualization the peritoneal cavity was entered in the left upper quadrant. The abdomen was then insufflated. The laparoscope was placed back into the perineal cavity. Next a 8 mm robotic trocar was placed in the left lower quadrant and a 12 mm robotic trocar was placed in the left lateral position. The original 5 mm trocar was exchanged for a 8 mm robotic trocar. The patient's placed in the left side up position. And the patient was undocked the robot. The umbilical hernia was visualized. Using hook cautery the peritoneum over the umbilical hernia was excised. The fascial opening was repaired using 0V LOC suture. Next a piece of 11 cm round ventral light ST mesh was placed into the. Cavity and secured with 2 OV lock suture. The patient was undocked the robot. The needles were retrieved. The fascia of the 12 mm trocar site was closed with 0 Ethibond suture. Skin was closed interrupted 3-0 Monocryl suture. Dermabond dressings was applied. Patient top procedure well and was sent to recovery room stable condition.
[2019-04-17] MEDS ORDERED: HYDROmorphone 1 MG/ML 1 ML SYRINGE IVP ONE (11:00)
[2019-04-17] MEDS ORDERED: NALOXONE 0.4 MG/ML 1 ML VIAL IV PRN (11:02)
[2019-04-17] MEDS ORDERED: HYDROmorphone 0.5 MG/0.5 ML SYRINGE IVP PRN (11:02)
[2019-04-17] MEDS ORDERED: traMADol 50 MG TAB PO PRN (11:02)
[2019-04-17] MEDS ORDERED: HYDROcodone/APAP 5-325MG 1 EACH TAB PO PRN (11:02)
[2019-04-17] MEDS ORDERED: ONDANSETRON 4 MG/2 ML VIAL IVP PRN (11:02)
[2019-04-17] MEDS ORDERED: KETOROLAC 30 MG/ML 1 ML VIAL IVP SCH (11:15)
[2019-04-17 11:26] VITALS: BP 135/67; PULSE 67
[2019-04-18] MEDS ORDERED: ENOXAPARIN 40 MG/0.4 ML SYRINGE SQ SCH (09:00)
== END 2019-04-17 11:56 | disposition home or self-care (01) ==
LOC: OR 05:55
PROVIDERS: ATTEND Surgery
DX: K42.9 Umbilical hernia without obstruction or gangrene (principal); K21.9 Gastro-esophageal reflux disease without esophagitis; E89.0 Postprocedural hypothyroidism; F17.210 Nicotine dependence, cigarettes, uncomplicated; Z79.890 Hormone replacement therapy; Z91.040 Latex allergy status; Z96.652 Presence of left artificial knee joint; Z85.850 Personal history of malignant neoplasm of thyroid; Z98.890 Other specified postprocedural states; Z80.9 Family history of malignant neoplasm, unspecified
CPT/HCPCS: 49652; 81025; 64488; 85025; C1781; J2250 ×2; J1644; J1100 ×3; J2710; J2405; J2001; J3010; J1170 ×2; J2795; J2704